=== PATIENT | male | born 1990 | race Caucasian/White ===

== ENCOUNTER 2020-04-13 03:16 | Emergency (ER) | payer OTHER ==
[~2020-04-13] VITALS: Ht 167.6 cm; Wt 62.1 kg
[~2020-04-13 03:16] MED LIST: PEPCID AC20 M2 PO; Promethazine PO
[2020-04-13 03:24] VITALS: Ht 167.6 cm; Wt 62.1 kg
[2020-04-13 05:43] VITALS: BP 122/87
== END 2020-04-13 05:43 | disposition home or self-care (01) ==
LOC: ED 03:16
DX: F43.20 Adjustment disorder, unspecified (principal); F32.9 Major depressive disorder, single episode, unspecified; F17.210 Nicotine dependence, cigarettes, uncomplicated

== ENCOUNTER 2020-05-14 13:32 | Emergency (ER) | payer OTHER ==
[~2020-05-14] VITALS: Ht 167.6 cm; Wt 59.4 kg
[2020-05-14 13:36] VITALS: BP 132/77; Ht 167.6 cm; Wt 59.4 kg
== END 2020-05-14 15:35 | disposition home or self-care (01) ==
LOC: ED 13:32
DX: Z53.21 Procedure and treatment not carried out due to patient leaving prior to being seen by health care provider (principal)

== ENCOUNTER 2020-05-16 09:23 | Emergency (ER) | payer OTHER ==
[~2020-05-16] VITALS: Ht 167.6 cm; Wt 58.5 kg
[2020-05-16 09:28] VITALS: Ht 167.6 cm; Wt 58.5 kg
[2020-05-16] MEDS ORDERED: ULTRAM50 MG PO (10:58)
[2020-05-16] MEDS ORDERED: IBU600 M2 PO (10:58)
[2020-05-16 11:50] VITALS: BP 135/85
== END 2020-05-16 11:08 | disposition home or self-care (01) ==
LOC: ED 09:23
DX: S32.009A Unspecified fracture of unspecified lumbar vertebra, initial encounter for closed fracture (principal); Y04.0XXA Assault by unarmed brawl or fight, initial encounter; Y93.89 Activity, other specified; Y92.89 Other specified places as the place of occurrence of the external cause; Y99.8 Other external cause status